=== PATIENT | female | born 1995 | race Caucasian/White ===

== ENCOUNTER 2017-12-30 02:41 | Emergency (ER) | payer OTHER ==
[2017-12-30] MEDS ORDERED: TETANUS AND DIPHTHERIA TOXOID 0.5 ML DISP.SYRIN IM ONE (03:08)
--- NOTE | 2017-12-30 03:08 | PDOC ---
History of Present Illness - General Stated Complaint: R LEG INJURY Time Seen by Provider: 12/30/17 02:43 History Source: Patient Exam Limitations: No Limitations - History of Present Illness Initial Comments: 12/30/17 03:48 Best Contact:[phone] Pmhx:2017: Bilateral breast implants, abdominoplasty 2006: Lab appendectomy Allergies: NKDA 22-year-old female presents to the ER complaining of 2 lacerations to the right mid lateral thigh after she cut herself on the corner of a license plate 16 hours ago. Patient states bleeding controlled with direct pressure prior to arrival. Patient denies fever, chills, nausea/vomiting, Ridge numbness or tingling sensation. Patient denies any extraneous at discharge. Unk lastTetanus. Past History - Past Medical History Allergies/Adverse Reactions: Allergies Allergy/AdvReac Type Severity Reaction Status Date / Time No Known Allergies Allergy Verified 12/30/17 03:50 Home Medications: Ambulatory Orders NK [No Known Home Medication] 12/30/17 Review of Systems - Review of Systems Able to Perform ROS?: Yes Comments:: 12/30/17 03:10 CONSTITUTIONAL: Absent: fever, chills, diaphoresis, generalized weakness, malaise, loss of appetite MUSCULOSKELETAL: Absent: myalgia, arthralgia, joint swelling SKIN: Absent: rash, itching, pallor Right mid lat right thigh: Right (1) 2.5 cm oblique jagged partial thickness Neg purulent drainage Is the patient limited Amharic proficient: No *Physical Exam - Physical Exam Comments: 12/30/17 03:11 GENERAL: Well developed, well nourished. Awake and alert. No acute distress. MUSCULOSKELETAL Normal range of motion at all joints. No bony deformities or tenderness. No CVA tenderness. EXTREMITIES: No cyanosis. No clubbing. No edema. No calf tenderness. SKIN: Warm and dry. Normal capillary refill. No rashes. No jaundice. Right mid lat right thigh: (1) 1.5cm jagged oblique partial thickness laceration + pain on palp neg purulent drainage Neg lymphangitis Right (1) 2.5 cm oblique jagged partial thickness +pain on palp Neg drainage Neg lymphangitis Right mid lat right thigh: (1) 1.5cm jagged oblique partial thickness laceration Betadine prep NS irrigation/copious Debridement to edges (2) 4-0 loose interrupted Prolene interrupted Bandaid Right (1) 2.5 cm oblique jagged partial thickness Betadine prep NS irrigation/copious Debridement to edges (3) 4-0 loose interrupted Prolene interrupted Bandaid Medical Decision Making - Medical Decision Making 12/30/17 03:57 22-year-old female presents to the ER with 2 lacerations to the right lateral thigh 16 hours ago. Updated her tetanus in the ER this evening. Loose approximation sutures because her lacerations were gaping. Patient placed on Keflex *DC/Admit/Observation/Transfer Diagnosis at time of Disposition: Laceration of leg not thigh, right Qualifiers: Encounter type: subsequent encounter Qualified Code(s): S81.811D - Laceration without foreign body, right lower leg, subsequent encounter - Discharge Dispostion Disposition: HOME Condition at time of disposition: Stable Admit: No - Referrals - Patient Instructions Printed Discharge Instructions: DI for Laceration Repair -- Complex Suture Additional Instructions: Keep the incision clean and dry for 24 hours. After 24 hours, you may allow the soap and water to rinse off your incision. Avoid direct pressure of the water to the incision. Pat the incision dry with a clean clothe. Cover the incision loosely with a bandaid. Take tylenol/motrin as needed for pain. Follow up with your physician or the ER in 48 hours for a wound check. Return to the ER if you notice red streaks, increase redness/swelling/severe pain to the incision. Suture removal in 11 days. As per our discussion, you sutures are very loose for the point of approximation purposes. - Post Discharge Activity
[2017-12-30] MEDS ORDERED: CEPHALEXIN MONOHYDRATE 500 MG CAPSULE (UD) PO ONE (03:09)
[2017-12-30] MEDS ORDERED: CEPHALEXIN MONOHYDRATE 500 MG CAPSULE (UD) ONE (03:39)
[2017-12-30 03:52] VITALS: BP 135/78; PULSE 88; TEMP 98; BMI 36.8
== END 2017-12-30 03:52 | disposition home or self-care (01) ==
LOC: JER 02:41
PROC: 0JQM0ZZ Repair Left Upper Leg Subcutaneous Tissue and Fascia, Open Approach (ICD-10-PCS; principal; 2017-12-30)
PROC: 3E0234Z Introduction of Serum, Toxoid and Vaccine into Muscle, Percutaneous Approach (ICD-10-PCS; 2017-12-30)
DX: S71.111A Laceration without foreign body, right thigh, initial encounter (principal); W26.8XXA Contact with other sharp object(s), not elsewhere classified, initial encounter; Y93.89 Activity, other specified; Y92.89 Other specified places as the place of occurrence of the external cause; Y99.8 Other external cause status
CPT/HCPCS: 12004; 90471; 99281-25

== ENCOUNTER 2021-05-12 07:28 | Emergency (ER) | payer OTHER ==
[2021-05-12 07:45] VITALS: BMI 26.2
[2021-05-12] MEDS ORDERED: CEPHALEXIN MONOHYDRATE 500 MG CAPSULE (UD) PO ONE (08:41)
[2021-05-12] MEDS ORDERED: LIDOCAINE HCL 1%, 10 MG/ML (20ML VIAL) ONE (09:39)
[2021-05-12] MEDS ORDERED: BACITRACIN 0.9 GM PACKET ONE (09:39)
[2021-05-12] MEDS ORDERED: CEPHALEXIN MONOHYDRATE 500 MG CAPSULE (UD) ONE (09:56)
[2021-05-12 12:03] VITALS: BP 121/62; PULSE 82; TEMP 98.7
== END 2021-05-12 12:04 | disposition home or self-care (01) ==
LOC: JER 07:28
DX: S91.311A Laceration without foreign body, right foot, initial encounter (principal); W26.8XXA Contact with other sharp object(s), not elsewhere classified, initial encounter
CPT/HCPCS: 73630-TC-RT-FY; 99283-25

== ENCOUNTER 2021-06-22 16:38 | Emergency (ER) | payer OTHER ==
[2021-06-22 17:03] VITALS: BP 108/73; PULSE 62; TEMP 98.4; BMI 26.2
== END 2021-06-22 18:26 | disposition home or self-care (01) ==
LOC: JERFT 16:38
DX: S91.311A Laceration without foreign body, right foot, initial encounter (principal); Y99.9 Unspecified external cause status; Z48.02 Encounter for removal of sutures
CPT/HCPCS: 99281-25